=== PATIENT | female | born 1975 | race Caucasian/White ===

== ENCOUNTER 2016-05-27 16:28 | Emergency (ER) | payer OTHER ==
[~2016-05-27] VITALS: Ht 167.6 cm; Wt 91.2 kg
[~2016-05-27 16:28] MED LIST: ADVAIR HFA120 INHAL1 IH; ALBUTEROL SULF8.5 GM IH; ALPRAZOLAM0.5 MG PO; AMOX TR-K CLV1 EAC4 PO; AURALGAN14.8 ML RIGHT EAR; AZELASTINE HCL6 ML BOTH EYES; BUPRENORPHINE 8 MG; CEFTIN500 MG PO; CIPRO HC OTIC S10 ML RIGHT EAR; CLEOCIN300 MG PO; EFFEXOR37.5 MG PO; FLEXERIL10 MG PO; FORTAMET500 MG PO; GABAPENTIN300 MG PO; GLUCOPHAGE500 MG PO; LAMICTAL100 MG; LAMICTAL100 MG PO; LORTAB 5-325 M1 EACH PO; LORTAB 5-500 T1 EACH PO; LaMICtal PO; METFORMIN HCL500 MG PO; MOBIC7.5 MG PO; MOTRIN600 MG PO; MOTRIN800 MG PO; NAPROSYN500 MG PO; NEURONTIN100 MG PO; NEURONTIN300 MG PO; NICOTINE PATCH1 EAC2 TD; NORCO 5/3251 TABLET PO; OMEPRAZOLE40 M1 PO; PERCOCET 5/31 TABLET PO; PERIDEX1 ML MM; PRAVASTATIN SOD20 MG PO; RISPERDAL1 MG PO; TEGRETOL100 MG; TESSALON200 MG PO; TRAMADOL HCL50 MG PO; VITAMIN B-650 M1 PO; ZANTAC 2525 MG PO
[2016-05-27 16:58] LABS: EOSINOPHIL (%) 1.1 % (0-5); EOSINOPHIL COUNT 0.1 K/uL (0-0.3); HEMATOCRIT 40.8 % (36.0-46.0); LYMPHOCYTE COUNT 2.2 K/uL (1.0-2.8); MCH 30.8 PG (29.0-34.0); MCHC 34.3 G/DL (30.0-36.0); MCV 89.9 FL (83-99); MEAN PLAT.VOLUME 10.8 uM^3 (9.5-12.4); MONOCYTE (%) 5.6 % (3-12); MONOCYTE COUNT 0.4 K/uL (0-0.8); NEUTROPHIL (%) 57.6 % (45-76); NEUTROPHIL COUNT 3.6 K/uL (1.8-6.4); PLATELET COUNT 191 K/uL (156-360); RBC DIS.WIDTH-CV 13.2 % (11.8-14.6); RED BLOOD COUNT 4.54 M/uL (3.80-5.20); WHITE BLOOD COUNT 6.2 K/uL (4.1-10.2)
[2016-05-27 17:14] LABS: CHLORIDE 108 mEq/L (99-109); POTASSIUM 3.8 mEq/L (3.7-5.4); SODIUM 141 mEq/L (136-147)
[2016-05-27 17:16] LABS: GLUCOSE 96 mg/dL (70-99)
[2016-05-27 17:17] LABS: ANION GAP 9 MEQ/L (2-14)
[2016-05-27 17:19] LABS: TROP-I INTERPRETATION NEGATIVE; TROPONIN-I < 0.01 ng/mL (0.0-0.30)
[2016-05-27 17:20] LABS: GFR ESTIMATE (CALCULATED) > 59 mL/min/
[2016-05-27 17:21] LABS: UREA NITROGEN (BUN) 8 mg/dL (9-23)
[2016-05-27] MEDS ORDERED: PREDNISONE50 MG PO (19:22)
[2016-05-27] MEDS ORDERED: ULTRAM50 MG PO (19:24)
[2016-05-27 19:57] VITALS: BP 131/81
== END 2016-05-27 19:58 | disposition home or self-care (01) ==
LOC: EME → EDBD 16:28 → EME 16:28
PROVIDERS: Emergency Medicine
DX: R09.1 Pleurisy (principal); F41.9 Anxiety disorder, unspecified; I10 Essential (primary) hypertension; F17.200 Nicotine dependence, unspecified, uncomplicated
CPT/HCPCS: 71010; 80048; 84484; 85025; 93005; 99281; 99285; J7040

== ENCOUNTER 2016-07-15 20:35 | Emergency (ER) | payer OTHER ==
[~2016-07-15] VITALS: Ht 167.6 cm; Wt 88.1 kg
[~2016-07-15 20:35] MED LIST changes: +PREDNISONE50 MG PO; +ULTRAM50 MG PO
[2016-07-15 20:39] VITALS: BP 136/72
== END 2016-07-15 22:45 | disposition home or self-care (01) ==
LOC: EME 20:35
DX: S80.02XA Contusion of left knee, initial encounter (principal); W00.0XXA Fall on same level due to ice and snow, initial encounter; E11.9 Type 2 diabetes mellitus without complications; F17.200 Nicotine dependence, unspecified, uncomplicated
CPT/HCPCS: 73564; 99281; 99284

== ENCOUNTER 2016-09-16 22:50 | Emergency (ER) | payer OTHER ==
[~2016-09-16] VITALS: Ht 165.1 cm; Wt 90.2 kg
[2016-09-16] MEDS ORDERED: NYSTATIN100000 UN1 PO (23:30)
[2016-09-16 23:41] VITALS: BP 127/89
== END 2016-09-16 23:42 | disposition home or self-care (01) ==
LOC: EME 22:50 → RME 22:50
DX: B37.0 Candidal stomatitis (principal); E11.9 Type 2 diabetes mellitus without complications; F17.200 Nicotine dependence, unspecified, uncomplicated; Z79.84 Long term (current) use of oral hypoglycemic drugs
CPT/HCPCS: 99281; 99283

== ENCOUNTER 2016-12-06 20:56 | Emergency (ER) | payer OTHER ==
[~2016-12-06] VITALS: Ht 167.6 cm; Wt 92.4 kg
[~2016-12-06 20:56] MED LIST changes: +NYSTATIN100000 UN1 PO
[2016-12-06] MEDS ORDERED: BACTRIM,SEPT1 TABLET PO (22:21)
[2016-12-06 22:46] VITALS: BP 135/92
== END 2016-12-06 22:46 | disposition home or self-care (01) ==
LOC: EME 20:56 → RME 20:56
PROC: 0HQNXZZ Repair Left Foot Skin, External Approach (ICD-10-PCS; principal; 2016-12-06)
DX: S91.312A Laceration without foreign body, left foot, initial encounter (principal); W45.8XXA Other foreign body or object entering through skin, initial encounter; G40.909 Epilepsy, unspecified, not intractable, without status epilepticus; E11.9 Type 2 diabetes mellitus without complications; Z79.84 Long term (current) use of oral hypoglycemic drugs; F17.200 Nicotine dependence, unspecified, uncomplicated
CPT/HCPCS: 73630; 99281; 99283

== ENCOUNTER 2017-01-01 12:24 | Emergency (ER) | payer OTHER ==
[~2017-01-01] VITALS: Ht 167.6 cm; Wt 92.4 kg
[~2017-01-01 12:24] MED LIST changes: +BACTRIM,SEPT1 TABLET PO
[2017-01-01] MEDS ORDERED: KEFLEX500 MG PO (13:28)
[2017-01-01] MEDS ORDERED: PERCOCET 5/31 TABLET PO (13:28)
[2017-01-01 13:42] VITALS: BP 128/90
== END 2017-01-01 13:47 | disposition home or self-care (01) ==
LOC: EME 12:24
PROC: 0H99XZZ Drainage of Perineum Skin, External Approach (ICD-10-PCS; principal; 2017-01-01)
DX: L02.215 Cutaneous abscess of perineum (principal); E11.9 Type 2 diabetes mellitus without complications; Z79.84 Long term (current) use of oral hypoglycemic drugs; R56.9 Unspecified convulsions; F17.200 Nicotine dependence, unspecified, uncomplicated
CPT/HCPCS: 87070; 87075; 87076; 87185; 87205; 99281; 99284

== ENCOUNTER 2017-07-19 20:56 | Emergency (ER) | payer OTHER ==
[~2017-07-19] VITALS: Ht 167.6 cm; Wt 94.1 kg
[~2017-07-19 20:56] MED LIST changes: +KEFLEX500 MG PO
[2017-07-19 22:06] LABS: BASOPHIL (%) 0.3 % (0-1); EOSINOPHIL (%) 0.4 % (0-5); EOSINOPHIL COUNT 0.1 K/uL (0-0.3); HEMATOCRIT 43.2 % (36.0-46.0); IMMATURE GRANULOCYTE (%) 0.3 % (0.0-0.7); LYMPHOCYTE (%) 19.7 % (15-42); LYMPHOCYTE COUNT 2.3 K/uL (1.0-2.8); MCHC 34.7 G/DL (30.0-36.0); MCV 92.1 FL (83-99); MONOCYTE (%) 4.6 % (3-12); MONOCYTE COUNT 0.5 K/uL (0-0.8); NEUTROPHIL (%) 74.7 % (45-76); NEUTROPHIL COUNT 8.8 K/uL (1.8-6.4); PLATELET COUNT 229 K/uL (156-360); RBC DIS.WIDTH-CV 12.9 % (11.8-14.6); RED BLOOD COUNT 4.69 M/uL (3.80-5.20); WHITE BLOOD COUNT 11.8 K/uL (4.1-10.2)
[2017-07-19 22:23] LABS: CHLORIDE 106 mEq/L (99-109); POTASSIUM 4.1 mEq/L (3.7-5.4); SODIUM 136 mEq/L (136-147)
[2017-07-19 22:25] LABS: GLUCOSE 90 mg/dL (70-99); TROP-I INTERPRETATION NEGATIVE; TROPONIN-I < 0.01 ng/mL (0.0-0.30)
[2017-07-19 22:29] LABS: CREATININE 0.8 mg/dL (0.6-1.3); GFR ESTIMATE (CALCULATED) > 59 mL/min/
[2017-07-19 22:30] LABS: UREA NITROGEN (BUN) 8 mg/dL (9-23)
[2017-07-19 23:30] VITALS: BP 113/76
== END 2017-07-20 00:28 | disposition left against medical advice (07) ==
LOC: EME 20:56
PROVIDERS: Emergency Medicine
DX: R07.9 Chest pain, unspecified (principal); M79.602 Pain in left arm; R06.02 Shortness of breath; I10 Essential (primary) hypertension; E11.9 Type 2 diabetes mellitus without complications; Z79.82 Long term (current) use of aspirin; Z79.84 Long term (current) use of oral hypoglycemic drugs; Z90.710 Acquired absence of both cervix and uterus; Z88.0 Allergy status to penicillin; F17.200 Nicotine dependence, unspecified, uncomplicated
CPT/HCPCS: 71046; 80048; 84484; 85025; 93005; 99281; 99285